=== PATIENT | female | born 1980 | race Caucasian/White ===

== ENCOUNTER 2018-04-20 12:53 | Emergency (ER) | payer OTHER ==
[2018-04-20] MEDS: KETOROLAC 15 MG INJ IM (14:51)
[2018-04-20] MEDS: LORAZEPAM 1 MG TAB PO (14:51)
== END 2018-04-20 16:25 | disposition home or self-care (01) ==
LOC: FTE 12:53
DX: S60.512A Abrasion of left hand, initial encounter (principal); S80.812A Abrasion, left lower leg, initial encounter; S80.811A Abrasion, right lower leg, initial encounter; R07.9 Chest pain, unspecified; M25.50 Pain in unspecified joint; V49.40XA Driver injured in collision with unspecified motor vehicles in traffic accident, initial encounter
CPT/HCPCS: 71046; 72040; 73610-RT; 81025; 96372; 99284-25